=== PATIENT | female | born 1940 | race Caucasian/White ===

== ENCOUNTER 2017-06-02 16:55 | Emergency (ER) | payer MEDICARE, OTHER ==
[2017-06-02 17:15] VITALS: PULSE 77; TEMP 98; BMI 28.9
[2017-06-02] MEDS ORDERED: AMOX TR/POT CLAV 875MG/125MG TABLETS (FP) PO ONE (17:18)
[2017-06-02] MEDS ORDERED: AMOX TR/POT CLAV 875MG/125MG TABLETS (FP) ONE (17:23)
--- NOTE | 2017-06-02 17:23 | PDOC ---
History of Present Illness - General History Source: Patient Exam Limitations: No Limitations <Bill Allison - Last Filed: 06/02/17 17:23> - General History Source: Patient Exam Limitations: No Limitations - History of Present Illness Initial Comments: 06/02/17 17:24 The patient is a 76 year old female with past medical history of hypertension, hyperlipidemia, diabetes mellitus, asthma and right LE DVT (not on anticoagulants) who presents to the ED with complaints of skin infection on right ankle that began over a month and a half ago. The patient states that the infection began when she scratched her leg. She proceeded to see her PCP for the rash where she was prescribed a cream which helped. About a week ago, the patient began scratching the site again and it proceeded to become infected, with redness, swelling, and pain to the area. She states that she would have seen her PCP but he is away for the holiday and the patient was concerned about having a DVT. The patient denies any associated fever, chills, nausea, vomiting , diarrhea, cough, SOB, or urinary symptoms. PCP: Augie Collins <Jenni Joy - Last Filed: 06/02/17 17:27> - General Chief Complaint: Redness To Affected Area Stated Complaint: REDNESS, ITCHINESS TO RLE Time Seen by Provider: 06/02/17 17:08 Past History - Past Medical History Cardiac Disorders: (DVT TO RLE) Diabetes: Yes HTN: Yes - Surgical History Cholecystectomy: Yes - Immunization History Immunization Up to Date: No - Psycho/Social/Smoking Cessation Hx Anxiety: No Suicidal Ideation: No Smoking History: Never smoked Have you smoked in the past 12 months: No Number of Cigarettes Smoked Daily: 0 Information on smoking cessation initiated: No Hx Alcohol Use: No Drug/Substance Use Hx: No Substance Use Type: None <Bill Allison - Last Filed: 06/02/17 17:23> <Jenni Joy - Last Filed: 06/02/17 17:27> - Past Medical History Allergies/Adverse Reactions: Allergies Allergy/AdvReac Type Severity Reaction Status Date / Time ciprofloxacin [From Cipro] Allergy Verified 06/02/17 16:56 ciprofloxacin HCl Allergy Verified 06/02/17 16:56 [From Cipro] Quinolones Allergy Verified 06/02/17 16:56 Home Medications: Ambulatory Orders Amlodipine Besylate 5 mg PO HS 06/02/17 Amoxicillin/Potassium Clav [Augmentin 875-125 Tablet] 1 each PO BID #14 tablet 06/02/17 Aspirin [Aspirin EC] 81 mg PO DAILY 06/02/17 Insulin Detemir [Levemir Flextouch] 40 iu SQ DAILY 06/02/17 Linagliptin/Metformin HCl [Jentadueto 2.5 mg-1000 mg Tab] 1 each PO BID Meclizine HCl 25 mg PO TID PRN 06/02/17 Olmesartan/Amlodipin/Hcthiazid [Mfknitd-Ajsfoe-Twev 40-5-25 mg] 1 each PO DAILY 06/02/17 Rosuvastatin [Crestor -] 20 mg PO DAILY 06/02/17 Review of Systems - Review of Systems Able to Perform ROS?: Yes Comments:: 06/02/17 17:24 GENERAL/CONSTITUTIONAL: No fever or chills. No weakness. HEAD, EYES, EARS, NOSE AND THROAT: No change in vision. No ear pain or discharge. No sore throat. CARDIOVASCULAR: No chest pain or shortness of breath. RESPIRATORY: No cough, wheezing, or hemoptysis. GASTROINTESTINAL: No nausea, vomiting, diarrhea or constipation. GENITOURINARY: No dysuria, frequency, or change in urination. MUSCULOSKELETAL: No joint or muscle swelling or pain. No neck or back pain. SKIN: Present: RLE skin infection NEUROLOGIC: No headache, vertigo, loss of consciousness, or change in strength/ sensation. ENDOCRINE: No increased thirst. No abnormal weight change. HEMATOLOGIC/LYMPHATIC: No anemia, easy bleeding, or history of blood clots. ALLERGIC/IMMUNOLOGIC: No hives or skin allergy. All Other Systems: Reviewed and Negative <Jenni Joy - Last Filed: 06/02/17 17:27> *Physical Exam - Vital Signs Last Vital Signs Temp Pulse Resp BP Pulse Ox 98 F 77 18 172/86 97 06/02/17 16:55 06/02/17 16:55 06/02/17 16:55 06/02/17 16:55 06/02/17 16:55 <Bill Allison - Last Filed: 06/02/17 17:23> - Vital Signs Last Vital Signs Temp Pulse Resp BP Pulse Ox 98 F 77 18 172/86 97 06/02/17 16:55 06/02/17 16:55 06/02/17 16:55 06/02/17 16:55 06/02/17 16:55 - Physical Exam Comments: 06/02/17 17:25 GENERAL: Awake, alert, and fully oriented, in no acute distress HEAD: No signs of trauma EYES: PERRLA, EOMI, sclera anicteric, conjunctiva clear ENT: Auricles normal inspection, hearing grossly normal, nares patent, oropharynx clear without exudates. Moist mucosa NECK: Normal ROM, supple, no lymphadenopathy, JVD, or masses LUNGS: Breath sounds equal, clear to auscultation bilaterally. No wheezes, and no crackles HEART: Regular rate and rhythm, normal S1 and S2, no murmurs, rubs or gallops ABDOMEN: Soft, nontender, normoactive bowel sounds. No guarding, no rebound. No masses EXTREMITIES: Normal range of motion, no edema. No clubbing or cyanosis. No cords, erythema, or tenderness NEUROLOGICAL: Cranial nerves II through XII grossly intact. Normal speech, normal gait SKIN: 8 x 5 site of erythema on the right distal medial leg. No induration, no fluctuance, several scratches, no drainage, tender to palpation. <Jenni Joy - Last Filed: 06/02/17 17:27> Medical Decision Making - Medical Decision Making 06/02/17 17:19 A portion of this note was documented by scribe services under my direction. I have reviewed the details of the note, within reason, and agree with the documentation with the following case summary and management plan written by me. Patient treated in the ED. Nursing notes are reviewed and incorporated into the medical decision-making. Vital signs reviewed. Peripheral IV access obtained by the nurse, laboratory studies are drawn and sent, reviewed and interpreted by myself. Vital Signs Temp Pulse Resp BP Pulse Ox 98 F 77 18 172/86 97 06/02/17 16:55 06/02/17 16:55 06/02/17 16:55 06/02/17 16:55 06/02/17 16:55 76 year old female with past medical history of HTN, DM, prior distant hx of DVT , HLD, asthma p/w R medial distal leg cellulitis. The patient was scratching it approx 1 week ago. Subsequently developed erythema and tenderness. Denies fevers. Denies exposures to poison stefani, other rashes, sick contacts. This is consistent with cellulitis. I had drawn a line around the erythema. Augmentin PO BID I instructed the patient and the daughter to follow up with DR. Collins in 2 days for wound check. Return precautions given including purulent drainage, fevers, worsening redness. I discussed the physical exam findings, ancillary test results and final diagnoses with the patient. I answered all of the patient's questions. The patient was satisfied with the care received and felt comfortable with the discharge plan and treatment plan. The patient will call their primary care physician within 24 hours to arrange follow-up and will return to the Emergency Department with any new, persistant or worsening symptoms. <Bill Allison - Last Filed: 06/02/17 17:23> *DC/Admit/Observation/Transfer - Discharge Dispostion Admit: No <Bill Allison - Last Filed: 06/02/17 17:23> - Attestations Scribe Attestion: 06/02/17 17:26 Documentation prepared by Jenni Joy, acting as medical coder for Bill Allison MD. <Jenni Joy - Last Filed: 06/02/17 17:27> Diagnosis at time of Disposition: Cellulitis Qualifiers: Site of cellulitis: extremity Site of cellulitis of extremity: lower extremity Laterality: right Qualified Code(s): L03.115 - Cellulitis of right lower limb - Discharge Dispostion Disposition: HOME Condition at time of disposition: Stable - Prescriptions Prescriptions: Amoxicillin/Potassium Clav [Augmentin 875-125 Tablet] 1 each PO BID #14 tablet - Referrals Referrals: Augie Collins MD [Primary Care Provider] - - Patient Instructions Printed Discharge Instructions: DI for Cellulitis -- Adult Additional Instructions: Please take the augmentin (antibiotics) 875 mg every 12 hours for 1 week. Please follow up with Dr. Collins in 2 days for skin check. If you have worsening redness (the red goes beyond the line), uncontrollable pain, please return to the ER. Print Language: [id number]
[2017-06-02 17:32] VITALS: BP 148/65
== END 2017-06-02 17:25 | disposition home or self-care (01) ==
LOC: FER 16:55
DX: L03.115 Cellulitis of right lower limb (principal); I10 Essential (primary) hypertension; E78.5 Hyperlipidemia, unspecified; E11.9 Type 2 diabetes mellitus without complications; J45.909 Unspecified asthma, uncomplicated; Z86.718 Personal history of other venous thrombosis and embolism
CPT/HCPCS: 99282-25

== ENCOUNTER 2020-09-09 19:33 | Inpatient (IN) | payer OTHER ==
[2020-09-09] MEDS ORDERED: SODIUM CHLORIDE 1,000 ML IV ONE (19:50)
[2020-09-09] MEDS ORDERED: ONDANSETRON 4 MG/2 ML VIAL IVPB ONE (19:50)
[2020-09-09] MEDS ORDERED: ONDANSETRON 4 MG/2 ML VIAL ONE (20:02)
[2020-09-09 20:28] LABS: BASO % 3.4 % (0-2.0); HEMATOCRIT 37.5 % (32.4-45.2); HEMOGLOBIN 11.6 GM/dl (10.7-15.3); LYMPH % 13.3 % (8-40); MCHC 30.9 g/dl (32.0-36.0); MEAN CELL VOLUME 87.3 fl (80-96); MEAN PLT VOLUME 10.3 fl (7.5-11.1); MONO % 7.3 % (3.8-10.2); PLATELET COUNT 283 K/MM3 (134-434); RDW 12.7 % (11.6-15.6); WHITE BLOOD COUNT 18.1 K/mm3 (4.0-10.8)
[2020-09-09 20:44] LABS: ALBUMIN 3.6 g/dl (3.4-5.0); BILIRUBIN,TOTAL 1.5 mg/dl (0.2-1); CALCIUM 9.3 mg/dl (8.5-10); CREATININE 1.3 mg/dl (0.55-1.3); TOT PROT 7.4 g/dl (6.4-8.2)
[2020-09-09] MEDS ORDERED: INSULIN REGULAR HUMAN 100 UNITS/ML *VIAL IVPUSH ONE (20:46)
[2020-09-09] MEDS ORDERED: MECLIZINE HCL 25 MG TABLET (FP) PO ONE (20:48)
[2020-09-09] MEDS ORDERED: MECLIZINE HCL 25 MG TABLET (FP) ONE (20:52)
[2020-09-09] MEDS ORDERED: INSULIN REGULAR HUMAN 100 UNITS/ML *VIAL ONE (20:54)
[2020-09-09 21:17] LABS: EPITHELIAL CELLS FEW /hpf
[2020-09-09] MEDS ORDERED: CEFTRIAXONE 1,000 MG in DEXTROSE 5%-WATER - 50 ML IVPB ONE (21:24)
[2020-09-09] MEDS ORDERED: cefTRIAXone SODIUM 1 GM VIAL ONE (21:26)
[2020-09-10] MEDS ORDERED: ACETAMINOPHEN 325 MG TABLET (FP) PO PRN (00:04)
[2020-09-10] MEDS: SODIUM CHLORIDE 1,000 ML IV SCH (01:58)
[2020-09-10 05:24] VITALS: BMI 29.0
[2020-09-10 08:33] LABS: BASO % 0.7 % (0-2.0); EOS % 0.1 % (0-4.5); HEMATOCRIT 34.7 % (32.4-45.2); LYMPH % 11.6 % (8-40); MCH 27.3 pg (25.7-33.7); MCHC 31.6 g/dl (32.0-36.0); MEAN CELL VOLUME 86.4 fl (80-96); MEAN PLT VOLUME 10.1 fl (7.5-11.1); MONO % 8.7 % (3.8-10.2); NEUT % 78.9 % (42.8-82.8); PLATELET COUNT 249 K/MM3 (134-434); RBC 4.02 M/mm3 (3.60-5.2); RDW 12.9 % (11.6-15.6); WHITE BLOOD COUNT 15.4 K/mm3 (4.0-10.8)
[2020-09-10 08:40] LABS: ALBUMIN 3.2 g/dl (3.4-5.0); BILIRUBIN,TOTAL 1.2 mg/dl (0.2-1); CREATININE 1.3 mg/dl (0.55-1.3); TOT PROT 6.8 g/dl (6.4-8.2)
[2020-09-10] MEDS: MECLIZINE HCL 25 MG TABLET (FP) PO SCH ×2 (09:30→21:32)
[2020-09-10] MEDS: PANTOPRAZOLE 40 MG TABLET PO SCH (10:15)
[2020-09-10] MEDS: ASPIRIN COATED 81 MG TABLET.EC PO SCH (10:15)
[2020-09-10] MEDS: CHOLECALCIFEROL (VIT D3) 5000 UNITS (125 MCG) CAP PO SCH (10:20)
[2020-09-10] MEDS: ENOXAPARIN NA (PORCINE) 40 MG/0.4 ML DISP.SYRIN SQ SCH (10:20)
[2020-09-10] MEDS: CEFTRIAXONE 1 GM in DEXTROSE 5%-WATER - 50 ML IVPB SCH (12:00)
[2020-09-10] MEDS: VALSARTAN 160 MG TABLET PO SCH (12:15)
[2020-09-10] MEDS: INSULIN (NOVOLOG) ASPART 100 UNITS/ML 10ML VIAL SQ SCH ×2 (16:48→21:34)
[2020-09-10] MEDS ORDERED: INSULIN SLIDING SCALE (NOVOLOG) 1 VIAL SQ ONE (17:56)
[2020-09-10] MEDS: ROSUVASTATIN CA 20 MG TABLET PO SCH (21:32)
[2020-09-10] MEDS: INSULIN (LEVEMIR) 100 UNITS/ML UNITS SQ SCH (21:33)
[2020-09-10] MEDS: amLODIPine BESYLATE 5 MG TABLET (FP) PO SCH (21:33)
[2020-09-11] MEDS: INSULIN (NOVOLOG) ASPART 100 UNITS/ML 10ML VIAL SQ SCH ×4 (06:22→21:42)
[2020-09-11] MEDS: SODIUM CHLORIDE 1,000 ML IV SCH (06:22)
[2020-09-11] MEDS ORDERED: DEXTROSE 5%-WATER - 50 ML IVPB ONE (08:56)
[2020-09-11] MEDS ORDERED: cefTRIAXone SODIUM 1 GM VIAL ONE (08:56)
[2020-09-11] MEDS: ASPIRIN COATED 81 MG TABLET.EC PO SCH (10:07)
[2020-09-11] MEDS: VALSARTAN 160 MG TABLET PO SCH (10:07)
[2020-09-11] MEDS: MECLIZINE HCL 25 MG TABLET (FP) PO SCH ×2 (10:07→21:35)
[2020-09-11] MEDS: ENOXAPARIN NA (PORCINE) 40 MG/0.4 ML DISP.SYRIN SQ SCH (10:08)
[2020-09-11] MEDS: PANTOPRAZOLE 40 MG TABLET PO SCH (10:08)
[2020-09-11] MEDS: CEFTRIAXONE 1 GM in DEXTROSE 5%-WATER - 50 ML IVPB SCH (10:08)
[2020-09-11] MEDS: CHOLECALCIFEROL (VIT D3) 5000 UNITS (125 MCG) CAP PO SCH (10:44)
[2020-09-11 12:50] LABS: BASO % 1.3 % (0-2.0); EOS % 0.7 % (0-4.5); HEMOGLOBIN 11.4 GM/dl (10.7-15.3); LYMPH % 18.7 % (8-40); MCH 26.7 pg (25.7-33.7); MCHC 30.7 g/dl (32.0-36.0); MEAN CELL VOLUME 87.2 fl (80-96); MEAN PLT VOLUME 9.9 fl (7.5-11.1); MONO % 7.4 % (3.8-10.2); NEUT % 71.9 % (42.8-82.8); PLATELET COUNT 317 K/MM3 (134-434); RBC 4.25 M/mm3 (3.60-5.2); WHITE BLOOD COUNT 11.5 K/mm3 (4.0-10.8)
[2020-09-11 12:57] LABS: CREATININE 1.1 mg/dl (0.55-1.3)
[2020-09-11] MEDS ORDERED: INSULIN SLIDING SCALE (NOVOLOG) 1 VIAL SQ ONE (16:33)
[2020-09-11] MEDS: ROSUVASTATIN CA 20 MG TABLET PO SCH (21:36)
[2020-09-11] MEDS: INSULIN (LEVEMIR) 100 UNITS/ML UNITS SQ SCH (21:36)
[2020-09-11] MEDS: amLODIPine BESYLATE 5 MG TABLET (FP) PO SCH (21:36)
[2020-09-12] MEDS: SODIUM CHLORIDE 1,000 ML IV SCH (00:15)
[2020-09-12] MEDS: INSULIN (NOVOLOG) ASPART 100 UNITS/ML 10ML VIAL SQ SCH ×2 (06:05→11:43)
[2020-09-12] MEDS ORDERED: cefTRIAXone SODIUM 1 GM VIAL ONE (07:23)
[2020-09-12] MEDS ORDERED: DEXTROSE 5%-WATER - 50 ML IVPB ONE (07:23)
[2020-09-12 08:21] LABS: BASO % 1.3 % (0-2.0); EOS % 1.2 % (0-4.5); HEMATOCRIT 33.4 % (32.4-45.2); HEMOGLOBIN 10.5 GM/dl (10.7-15.3); LYMPH % 25.1 % (8-40); MCH 27.4 pg (25.7-33.7); MCHC 31.5 g/dl (32.0-36.0); MEAN PLT VOLUME 10.3 fl (7.5-11.1); MONO % 10.4 % (3.8-10.2); PLATELET COUNT 295 K/MM3 (134-434); RBC 3.84 M/mm3 (3.60-5.2); RDW 12.5 % (11.6-15.6); WHITE BLOOD COUNT 9.2 K/mm3 (4.0-10.8)
[2020-09-12] MEDS: PANTOPRAZOLE 40 MG TABLET PO SCH (09:33)
[2020-09-12] MEDS: MECLIZINE HCL 25 MG TABLET (FP) PO SCH (09:33)
[2020-09-12] MEDS: ASPIRIN COATED 81 MG TABLET.EC PO SCH (09:33)
[2020-09-12] MEDS: CEFTRIAXONE 1 GM in DEXTROSE 5%-WATER - 50 ML IVPB SCH (09:34)
[2020-09-12] MEDS: ENOXAPARIN NA (PORCINE) 40 MG/0.4 ML DISP.SYRIN SQ SCH (09:34)
[2020-09-12] MEDS: VALSARTAN 160 MG TABLET PO SCH (09:36)
[2020-09-12] MEDS: CHOLECALCIFEROL (VIT D3) 5000 UNITS (125 MCG) CAP PO SCH (09:39)
[2020-09-12] MEDS ORDERED: PT OWN MED DRAWER 7, Y5N ONE (09:39)
[2020-09-12 09:45] VITALS: TEMP 98.9
[2020-09-12 10:26] VITALS: BP 132/68; PULSE 93
== END 2020-09-12 13:02 | disposition home or self-care (01) | DRG 872 ==
LOC: FER 19:33 → FM/S 23:20 → UNDOADMIN 09-10 00:28
PROVIDERS: ADMIT Internal Medicine; ATTEND Nurse Practitioner Acute Care
DX: A41.89 Other specified sepsis (principal); N10 Acute pyelonephritis; E87.1 Hypo-osmolality and hyponatremia; E11.9 Type 2 diabetes mellitus without complications; I10 Essential (primary) hypertension; K21.9 Gastro-esophageal reflux disease without esophagitis; R42 Dizziness and giddiness; R11.2 Nausea with vomiting, unspecified; E78.5 Hyperlipidemia, unspecified; B96.1 Klebsiella pneumoniae [K. pneumoniae] as the cause of diseases classified elsewhere
CPT/HCPCS: 36415; 71045-TC-FY; 74019-TC-FY; 74176-TC; 80048; 80053; 81003; 81015; 82550; 82962; 83605; 84443; 84484; 85025; 87040; 87086; 87186; 93005; 97116-GP; 97162-GP; 99285-25; C9803; U0003

== ENCOUNTER → 2020-10-05 | Day surgery (SDC) | payer OTHER | END | disposition home or self-care (01) | LOC: JRADUS-SUR 08:35 | PROVIDERS: ATTEND Family Medicine | PROC: 0H9T3ZX Drainage of Right Breast, Percutaneous Approach, Diagnostic (ICD-10-PCS; principal; 2020-10-05) | DX: C50.911 Malignant neoplasm of unspecified site of right female breast (principal) | CPT/HCPCS: 19083; 77065-TC; 82962; 87899; A4648 ==

== ENCOUNTER 2020-11-22 04:26 | Day surgery (SDC) | payer OTHER ==
[2020-11-17 17:18] VITALS: BMI 29.2
[2020-11-22 09:31] LABS: INR 1.04 (0.83-1.09); PROTHROMBIN TIME (PATIENT) 12.6 SEC (9.7-13.0)
[2020-11-22 09:34] LABS: ACTIVATED PTT 26.3 SECONDS (25.2-36.5)
[2020-11-22] MEDS ORDERED: ISOSULFAN BLUE 50 MG/5 ML VIAL SQ ONE (11:03)
[2020-11-22] MEDS ORDERED: LIDOCAINE HCL 1%, 10 MG/ML (20ML VIAL) ONE (11:03)
[2020-11-22] MEDS ORDERED: MIDAZOLAM HCL 2 MG/2 ML SINGLE DOSE VIAL ONE (11:42)
[2020-11-22] MEDS ORDERED: PROPOFOL 20 ML ONE (11:42)
[2020-11-22] MEDS ORDERED: oxyCODONE HCL 5 MG TABLET PO PRN ×2 (11:56)
[2020-11-22] MEDS ORDERED: ONDANSETRON 4 MG/2 ML VIAL IVPUSH PRN (11:56)
[2020-11-22] MEDS ORDERED: LACTATED RINGERS SOLUTION 1,000 ML IV SCH (12:00)
[2020-11-22] MEDS ORDERED: EPHEDRINE SULFATE/0.9% NACL/PF 50 MG/10 ML SYRINGE NR ONE (12:30)
[2020-11-22] MEDS ORDERED: CLINDAMYCIN 600 MG PREMIX BAG IVPB ONE (12:35)
[2020-11-22] MEDS ORDERED: LIDOCAINE HCL 1%, 10 MG/ML (20ML VIAL) INF ONE ×2 (12:40)
[2020-11-22] MEDS ORDERED: HYDROmorphone HCl 2 MG/ML VIAL ONE (12:56)
[2020-11-22 15:09] VITALS: TEMP 98
[2020-11-22 16:27] VITALS: BP 131/63; PULSE 77
== END 2020-11-22 16:05 | disposition home or self-care (01) ==
LOC: JASU-SURG 04:26
PROVIDERS: ATTEND Surgery
PROC: C71L1ZZ Planar Nuclear Medicine Imaging of Upper Chest Lymphatics using Technetium 99m (Tc-99m) (ICD-10-PCS; 2020-11-22)
PROC: 0HBT0ZZ Excision of Right Breast, Open Approach (ICD-10-PCS; principal; 2020-11-22 11:00)
PROC: 07B80ZX Excision of Right Internal Mammary Lymphatic, Open Approach, Diagnostic (ICD-10-PCS; 2020-11-22 11:00)
DX: C50.911 Malignant neoplasm of unspecified site of right female breast (principal)
CPT/HCPCS: 36415; 78195-TC; 82962; 85610; 85730; 88307-TC; 94760; A9541